=== PATIENT | male | born 1965 | race African-American/Black ===

== ENCOUNTER 2016-03-25 23:29 | Inpatient (IN) | payer MEDICAID, OTHER ==
[2016-03-25] MEDS ORDERED: ONDANSETRON 4 MG/2 ML VIAL ONE (23:43)
[2016-03-25] MEDS ORDERED: NS 2,000 ML IV ONE (23:52)
[2016-03-25] MEDS ORDERED: ONDANSETRON 4 MG/2 ML VIAL IVP ONE (23:52)
--- NOTE | 2016-03-25 23:58 | EDPHY ---
[id number] weakness, hypotension from detention HISTORY OF PRESENT ILLNESS: This patient very pleasant 50-year-old male significant past medical history for chronic kidney disease with baseline creatinine of 2-2.3 hypertension hyperlipidemia obstructive sleep apnea , obesity, angioedema, chronic pain with narcotic dependency, presents emergency room with generalized weakness from detention. It was noted by EMS the blood pressures in the low 80s sometimes in the 70s in route. They are unable to establish an IV. Upon arrival here in the emergency room is placed in the ER room 1 for resuscitation. His initial blood pressure was 80s by palpation. Is extremely hard IV stick. We able to get a right arm IV in place and a right neck IV. He tells me that for the past 2 days he has had generalized weakness, nausea 1- 2 episodes of vomiting he denies this being bloody, he denies bloody bowel movements however was reported to us that he did have possible blood in his stool. His main complaint is generalized weakness, nausea and feels really bad when he goes to stand up he gets extremely lightheaded. He denies chest pain or shortness of breath he denies headache, numbness or tingling. He does report that he has some left lower quadrant abdominal pain. Patient also tells me that he has thrush at this time. Past Medical History: Multiple chronic medical problems including chronic kidney disease creatinine to 2.3 baseline, hypertension, hyperlipidemia, BOBO, obesity, angioedema, chronic pain with narcotic dependency, questionable MS Past Surgical History: G-tube placement and removal, ? brain biopsy Social History: Incarcerated denies use of drugs alcohol tobacco products Family History: Noncontributory ROS REVIEW OF SYSTEMS: A comprehensive 10 point review of systems is otherwise negative aside from elements mentioned in the history of present illness. Exam Constitutional triage nursing summary reviewed, vital signs reviewed, awake/ alert. Eyes normal conjunctivae and sclera, EOMI, PERRLA. HENT normal inspection, atraumatic, extremely dry mucous membranes, no epistaxis, neck supple/ no meningismus, no raccoon eyes. Respiratory clear to auscultation bilaterally, normal breath sounds, no respiratory distress, no wheezing. Cardiovascular rate normal, regular rhythm, no murmur, no edema, distal pulses normal. Gastrointestinal soft, non-tender, no rebound, no guarding, normal bowel sounds, no distension, no pulsatile mass. Rectal exam: Green brown stool, no blood gross exam. Hemoccult card sent. Genitourinary no CVA tenderness. Musculoskeletal no midline vertebral tenderness, full range of motion, no calf swelling, no tenderness of extremities, no meningismus, good pulses, neurovascularly intact. Skin dry, pink, warm, & dry, no rash, skin atraumatic. Neurologic awake, alert and oriented x 3, AAOx3, moves all 4 extremities equally, motor intact, sensory intact, CN II-XII intact, normal cerebellar, normal vision, normal speech. Psychiatric normal mood/affect. Heme/Lymph/Immune no lymphadenopathy. Differential Diagnosis: Includes but is not limited to in a particular order, sepsis, bacteremia, electrolyte abnormality, severe dehydration, acute intra- abdominal process like diverticulitis, colitis, ruptured AAA, pneumonia, worsening renal failure, uremia, blood loss anemia, acute GI bleed, ACS Medical Decision Making: This patient will have 2 large-bore IVs established be resuscitated with IV fluid, we will check a rectal exam to make sure he is not having acute blood loss anemia from GI bleed leading to generalized weakness and hypotension, we will check EKG, troponin, electrolytes, kidney function, K, chest x-ray for pneumonia, blood cultures be pulled for bacteremia and sepsis, patient be closely monitored ER room 1. Re-evaluation: Critical Care: Total Critical Care Time Spent Managing this Patient: 60 minutes Minutes. This time was spent Exclusively with this patient. This Care was exclusive of procedures. The Organ System/life at risk was severe hypotension, cardiac, renal, neurological This Patient was in Critical Condition because severe hypotension EKG interpretation by me on record in [employer] Formula E system. Impression time of EKG is 12:04 a.m. this is sinus rhythm rate of 58, there are T-wave abnormalities noted into 3 AVF flattening of lead 3, there are T-wave abnormality symmetrical in V4 V5 V6 when I compare his current EKG to the EKG on 01/07/2016 the T-wave abnormalities seen in V4 V5 and V6 are new however lead 2 3 and AVF looks similar to previous EKGs. ED x-ray chest one view lung davis are clear, no pulmonary infiltrate. Cardiac silhouette normal in size good inspiratory effort. 1246: re-evaluation at this time this patient's blood pressure is currently 93 over 53 at this time he has had 1 L normal saline the 2nd L is going in. Blood work pending at this time. Echocardiogram at bedside doing a formal echo for hypertension generalized weakness CT scan of the abdomen pelvis without IV contrast. The results of the study are shows no acute inflammatory process is noted there are 2 pulmonary nodules that will need further evaluation and workup at a later point, there is minimal rectal thickening however no stranding or significant inflammation seen on the CT. No free fluid. No acute inflammatory intra-abdominal process on this CT scan without IV contrast The study was read by Dr. Gr I viewed the images myself on the PACS system. Echocardiogram: Performed at bedside by electrical power station technician reported to me severe LVH otherwise unremarkable 1310: This patient has a blood sugar reported to me of in the 9 100s. His bicarb is noted to be severely low at 14. This makes him in DKA. We started an insulin drip and admitted to the intensive care unit. 0117: I spoke with Dr. Zimmer as the hospitalist service agrees to admit this patient patient be admitted to the ICU in severe DKA, acidemia, prerenal renal failure. I have ordered a Sidhu catheter he is receiving his 3rd L of fluid. Is noted he is hyponatremic, hyperkalemic, acidotic and anion gap indicating DKA. This is most likely severe dehydration and DKA. Patient's blood pressure did improve it is now currently 101/76. I will also consult Nephrology this time due to elevated creatinine and BUN however most likely this is pre renal and will hopefully improve with IV fluids and rehydration. 0121: I spoke with Nephrology Dr. Marsh with Nephrology. They agree with treatment plan at this time with IV fluids, and treatment for DKA placement in ICU they do expect the potassium creatinine BUN to improved with IV hydration and IV insulin. Source: Patient, EMS - Personal History Current Tetanus/Diphtheria Vaccine: Unsure Current Tetanus Diphtheria and Acellular Pertussis (TDAP): Unsure - Medical/Surgical History Hx Asthma: No Hx Chronic Respiratory Disease: No Hx Diabetes: Yes Hx Cardiac Disease: Yes Hx Renal Disease: Yes Hx Cirrhosis: No Hx Alcoholism: No Hx HIV/AIDS: No Hx Splenectomy or Spleen Trauma: No Other PMH: uncontrolled HTN, renal insufficiency, tumor wrapped around brain stem ANXIETY. DM II, hld, BOBO. chronic pain - Social History Smoking Status: Light smoker Constitutional: Initial Vital Signs Heart Rate 63 03/25/16 23:29 Respiratory Rate 12 03/25/16 23:29 Blood Pressure 78/52 L 03/25/16 23:29 O2 Sat (%) 99 03/25/16 23:29 O2 Delivery Mode Nasal Cannula O2 (L/minute) 2 Allergies/Adverse Reactions: acetaminophen [From Tylenol] Allergy (Severe, Verified 04/05/15 17:27) Swelling/neck,face,throat Tvczbvs-Dnb-Yxh Reductase Inhibitor Allergy (Unknown, Verified 01/30/15 16:58) metoclopramide HCl [From Reglan] Allergy (Verified 01/30/15 16:58) Home Medications: Medication Instructions Recorded Allopurinol [Allopurinol 100 MG 200 mg PO DAILY 03/26/16 (*)] Amlodipine Besylate 10 mg PO HS 03/26/16 Ezetimibe [Zetia 10 MG (*)] 10 mg PO HS 03/26/16 Famotidine [Pepcid 20 MG (*)] 20 mg PO BID 03/26/16 Lisinopril/Hydrochlorothiazide 1 each PO DAILY 03/26/16 [Zestoretic 20-25 mg Tablet] Metoprolol Succinate [Toprol Xl 200 mg PO DAILY 03/26/16 200 mg] Mometasone/Formoterol [Dulera 100 1 puffs IH BID 03/26/16 Mcg/5 Mcg Inhaler] Sertraline HCl [Zoloft 100mg (*)] 100 mg PO DAILY 03/26/16 Medical Decision Making - Data Points Laboratory Results: Laboratory Results 03/25/16 23:00 03/25/16 23:00 Medications Given: Discontinued Medications Fentanyl (Sublimaze) 50 mcg IVP EDNOW ONE Stop: 03/26/16 01:26 Last Admin: 03/26/16 01:28 Dose: 50 mcg Sodium Chloride (Ns) 2,000 mls @ 0 mls/hr IV ONCE ONE PRN Reason: As Directed Stop: 03/25/16 23:53 Last Admin: 03/25/16 23:54 Dose: 2,000 mls Sodium Chloride (Ns) 1,000 mls @ 0 mls/hr IV ONCE ONE PRN Reason: Wide Open Stop: 03/26/16 00:56 Last Admin: 03/26/16 00:55 Dose: 1,000 mls Insulin Human Regular 100 unit / Miscellaneous Medication 1 ea/ Sodium Chloride 101 mls @ 6 mls/hr IV EDNOW ONE Stop: 03/26/16 17:57 Last Admin: 03/26/16 01:26 Dose: 101 mls Sodium Chloride (Ns) 1,000 mls @ 0 mls/hr IV ONCE ONE PRN Reason: Wide Open Stop: 03/26/16 02:02 Last Admin: 03/26/16 02:08 Dose: 1,000 mls Insulin Human Regular 100 unit (/ Sodium Chloride) 101 mls @ 0 mls/hr IV AD EUFEMIA ; Per Protocol PRN Reason: Protocol Stop: 09/22/16 02:57 Last Admin: 03/26/16 06:36 Dose: 101 mls Sodium Chloride (1/2 Ns) 1,000 mls @ 125 mls/hr IV CONT EUFEMIA Stop: 09/22/16 03:29 Last Admin: 03/26/16 06:39 Dose: 1,000 mls Sodium Chloride (Ns) 1,000 mls @ 0 mls/hr IV ONCE ONE PRN Reason: Wide Open Stop: 03/26/16 07:24 Last Admin: 03/26/16 08:10 Dose: 1,000 mls Ondansetron HCl (Zofran) 4 mg IVP EDNOW ONE Stop: 03/25/16 23:53 Last Admin: 03/25/16 23:54 Dose: 4 mg Potassium Chloride (Klor-Con) 10 - 40 meq PO ONCE ONE PRN Reason: Protocol Stop: 03/26/16 06:20 Last Admin: 03/26/16 06:40 Dose: 30 meq Potassium Chloride (Klor-Con) 10 - 40 meq PO ONCE ONE PRN Reason: Protocol Stop: 03/26/16 09:23 Last Admin: 03/26/16 10:02 Dose: 20 meq Potassium Chloride (Klor-Con) 10 - 40 meq PO ONCE ONE PRN Reason: Protocol Stop: 03/26/16 14:04 Last Admin: 03/26/16 15:08 Dose: 30 meq Departure - Departure Disposition: [facility] Acute Clinical Impression: Renal failure DKA (diabetic ketoacidoses) Qualifiers: Diabetes mellitus type: type 1 Diabetes mellitus complication detail: without coma Qualifier Code: (E10.10) Type 1 diabetes mellitus with ketoacidosis without coma Condition: Critical
--- NOTE | 2016-03-26 00:06 | CPEKG ---
Heart Rate: 58 RR Interval: 1034 P-R Interval: 200 QRSD Interval: 82 QT Interval: 476 QTC Interval: 468 P [place]: 17 QRS [place]: 6 T Wave [place]: 223 EKG Severity - ABNORMAL ECG - EKG Impression: SINUS RHYTHM EKG Impression: ABNORMAL T, CONSIDER ISCHEMIA, LATERAL LEADS Electronically Signed By: Arthur Cain 27-Mar-2016 04:14:35
[2016-03-26 00:21] LABS: % IMMATURE GRANULYOCYTES 0.6 % (0.0-1.1); ABSOLUTE IMMATURE GRANULOCYTES 0.04 10^3/uL (0.00-0.10); ADD DIFF? NO; ADD MORPH? NO; ADD SCAN? NO; ATYPICAL LYMPHOCYTE FLAG 10 (0-99); FRAGMENT RBC FLAG 20 (0-99); HEMATOCRIT 41.2 % (40.0-51.0); HEMOGLOBIN 14.4 g/dL (13.7-17.5); LEFT SHIFT FLG 0 (0-99); LIPEMIA HEMOLYSIS FLAG 90 (0-99); MEAN CELL HEMOGLOBIN 25.6 pg (27.9-34.1); MEAN CELL VOLUME 73.3 fL (81.5-99.8); PLATELET CLUMPS FLAG 10 (0-99); PLATELET COUNT 231 10^3/uL (150-400); RED BLOOD CELL COUNT 5.62 10^6/uL (4.40-6.38); RED CELL DISTRIBUTION WIDTH 14.6 % (11.5-15.2)
[2016-03-26 00:28] LABS: APTT 25.4 SEC (23.0-38.0); INR 1.06 (0.83-1.16); PROTIME(PATIENT) 13.7 SEC (12.0-15.0)
[2016-03-26 00:40] LABS: ALANINE AMINOTRANSFERASE 29 IU/L (21-72); ALBUMIN 3.7 g/dL (3.5-5.0); ALKALINE PHOSPHATASE 147 IU/L (38-126); ANION GAP 24 mEq/L (8-16); ASPARTATE AMINOTRANSFERASE 18 IU/L (17-59); BILIRUBIN,TOTAL 0.8 mg/dL (0.1-1.4); BILIRUBIN-CONJUGATED 0.5 mg/dL (0.0-0.5); BILIRUBIN-UNCONJUGATED 0.3 mg/dL (0.0-1.1); CALCIUM 8.9 mg/dL (8.5-10.4); CARBON DIOXIDE 14 mEq/l (22-31); CHLORIDE 83 mEq/L (97-110); CREATININE 5.9 mg/dL (0.7-1.3); GLOMERULAR FILTRATION RATE 10; MAGNESIUM 2.5 mg/dL (1.6-2.3); POTASSIUM 6.1 mEq/L (3.5-5.2); SODIUM 121 mEq/L (134-144); TOTAL PROTEIN 6.8 g/dL (6.3-8.2)
[2016-03-26 00:51] LABS: CREATINE KINASE-MB FRACTION 2.54 ng/mL (0-3.19); TROPONIN I 0.135 ng/mL (0-0.034)
[2016-03-26] MEDS ORDERED: NS 1,000 ML IV ONE ×3 (00:55→07:23)
[2016-03-26 01:05] LABS: GLUCOSE 942 mg/dL (70-100)
[2016-03-26] MEDS ORDERED: INSULIN REGULAR HUMAN 100 UNIT, COSIGN. REQUIRED 1 EA in NS 100 ML IV ONE (01:08)
[2016-03-26] MEDS ORDERED: LIDOCAINE 2% JELLY 20 ML (UROJECT) ONE (01:21)
[2016-03-26] MEDS ORDERED: fentaNYL 100 MCG/2 ML INJ IVP ONE (01:25)
[2016-03-26] MEDS ORDERED: fentaNYL 100 MCG/2 ML INJ ONE (01:26)
[2016-03-26 02:27] LABS: B-HYDROXYBUTYRATE 7.1 mmol/L (0.02-0.27)
[2016-03-26 02:56] LABS: ALANINE AMINOTRANSFERASE 34 IU/L (21-72); ALBUMIN 3.3 g/dL (3.5-5.0); ALKALINE PHOSPHATASE 126 IU/L (38-126); ANION GAP 23 mEq/L (8-16); ASPARTATE AMINOTRANSFERASE 16 IU/L (17-59); BILIRUBIN,TOTAL 0.7 mg/dL (0.1-1.4); CALCIUM 8.3 mg/dL (8.5-10.4); CARBON DIOXIDE 14 mEq/l (22-31); CHLORIDE 90 mEq/L (97-110); CREATININE 5.2 mg/dL (0.7-1.3); GLOMERULAR FILTRATION RATE 12; POTASSIUM 5.4 mEq/L (3.5-5.2); SODIUM 127 mEq/L (134-144); TOTAL PROTEIN 6.1 g/dL (6.3-8.2)
[2016-03-26] MEDS ORDERED: INSULIN REGULAR HUMAN 100 UNIT/ML IVP PRN (02:58)
[2016-03-26] MEDS ORDERED: INSULIN REGULAR HUMAN 100 UNIT in NS 100 ML IV SCH ×2 (02:58→03:00)
[2016-03-26] MEDS ORDERED: D50W 25 GM/50 ML SYR IVP PRN ×2 (02:58→09:40)
[2016-03-26 03:06] LABS: GLUCOSE 787 mg/dL (70-100)
[2016-03-26] MEDS ORDERED: PROMETHAZINE HCL 25 MG/ML VIAL IVP PRN (03:10)
[2016-03-26] MEDS ORDERED: 1/2 NS 1,000 ML IV SCH (03:30)
[2016-03-26 03:43] LABS: COLOR YELLOW; LEUKOCYTE ESTERASE,URINE NEGATIVE (NEGATIVE); NITRITE,URINE NEGATIVE (NEGATIVE)
[2016-03-26 03:46] LABS: BACTERIA TRACE /hpf (NONE SEEN); MUCUS 1+ /lpf (NONE-1+)
--- NOTE | 2016-03-26 04:01 | GHP ---
[f rep st] HISTORY AND PHYSICAL DATE OF ADMISSION: 03/26/2016 CHIEF COMPLAINT: Abdominal pain and oral thrush. HISTORY OF PRESENT ILLNESS: The patient is a 50-year-old male, currently incarcerated, who has been feeling sick for the last 2 weeks. It initially started with development of oral thrush. He also no ticed a left upper quadrant abdominal pain. He has been sleeping all day. He has had increased thir st and polyuria. He has had weight loss and has decreased p.o. intake, not eating anything for the l ast 4 days. He has noticed blurry vision and increased urinary frequency. He feels like his throat is swollen secondary to the thrush. He denies any chest pain. Feels maybe some shortness of breath due to the throat issues. He has never previously been told he is diabetic and was hospitalized here 6 months ago without any evidence of diabetes and a hemoglobin A1c of 5.7 at that time. PAST MEDICAL HISTORY: 1. Chronic kidney disease, baseline creatinine 2.3. 2. Kslvbatvz-py-gccytxo hypertension. 3. Hyperlipidemia. 4. Obesity with obstructive sleep apnea. 5. Chronic pain with continuous narcotic dependency. 6. Recurrent angioedema of unclear etiology. 7. Gout. 8. 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 Brain biopsy was attempted but was nondiagnostic. Subsequently, he developed complete paralysis and multiple sclerosis was the res ulting diagnosis. He spent years in a wheelchair but has had improvement and his now back to being a mbulatory with some minor residual neuro deficits. MEDICATIONS: He does take lisinopril and hydrochlorothiazide. He takes prednisone as needed for gou t with his last prednisone burst being in January. ALLERGIES: Tylenol, which causes angioedema, statins, and Reglan. SOCIAL HISTORY: He smoked prior to being in skilled nursing. He has been in skilled nursing since May. Typically lives in a mobile home. No alcohol. No drug use. REVIEW OF SYSTEMS: Complete review of systems obtained. Review of systems is negative regarding con stitutional, HEENT, GI, pulmonary, cardiovascular, , hematologic, musculoskeletal, endocrine, psych , except for positive pertinents as noted in HPI. FAMILY HISTORY: Reviewed and noncontributory to presenting complaint. PHYSICAL EXAMINATION: GENERAL: Well-developed, well-nourished male in no acute distress. VITAL SIG NS: Temperature is afebrile, pulse is 63, blood pressure 83/58, saturating 99% on room air. EYES: Normal conjunctivae. Pupils react light. ENT: Normal ears and nose. Hearing intact. Normal lips and teeth. Oropharynx is very dry. Some possible thrush irritation. NECK: Trachea midline. No th yromegaly. CHEST: Normal respiratory effort. LUNGS: Clear to auscultation bilaterally. CARDIOVAS CULAR: S1, S2. Regular rate and rhythm. No murmur. No lower extremity edema. ABDOMEN: Soft, non tender. No hepatosplenomegaly. SKIN: Warm, dry, intact, without rash. MUSCULOSKELETAL: No cyanos is or clubbing. Strength is 5/5 upper and lower extremities. NEURO: Cranial nerves intact. Normal sensation to light touch. PSYCH: Alert and oriented x3. Normal mood and affect. Normal judgment and insight. Normal memory. LABS: White count 6.46, hematocrit 41.2, platelets 231. Sodium 121, potassium 6.1, chloride 83, bic arb 14, anion gap 24, BUN 65, creatinine 5.9, glucose 942. Phos is 9.2. Troponin 0.135. EKG viewed by me, and my personal interpretation is normal sinus rhythm, lateral T-wave inversion. C hest x-ray is negative. Abdominal CT scan is negative except for some pulmonary nodules discovered, which need follow up. ASSESSMENT/PLAN: 1. Diabetic ketoacidosis. This appears to be new-onset diabetes. Will treat per DKA protocol with insulin drip and IV fluids with serial chem-7's. 2. Hypotension. I suspect this is hypovolemia. Will check his NICOM, check a lactate. Will hold h is blood pressure medications. 3. Yjvzg-nx-qeqdisu kidney disease. Nephrology has been consulted. We will check a renal ultrasoun d. We will hold his lisinopril and hydrochlorothiazide, which are likely contributing. 4. Troponin elevation. I suspect this is strain due to his medical instability. He does have some significant lateral T-wave inversions. Will follow serial troponins and EKGs. 5. Thrush. Will continue nystatin, which was initiated in skilled nursing. 6. Gout. He has not had a prednisone burst since last January, but this needs to be used with caut ion now that he is diabetic. 7. Hyponatremia. After his initial fluid resuscitation in the emergency room, we have already corre cted his initial sodium fairly briskly. Will, therefore, use half-normal saline as his resuscitative fluid from this point forward and try to avoid further rapid correction. This may be difficult due to balance in lieu of his need for ongoing fluid resuscitation for DKA and hypotension due to hypovol emia. 8. 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 This all occurred 10 years ago. Presumably, it would not be malignant tumor since he is improved. Brain imaging can be repeated if there are any further concerns. 9. Pulmonary nodules incidentally noted on CAT scan. These need outpatient followup. CODE STATUS: Full. ADMISSION STATUS: 1. Will admit to inpatient as he is unstable and anticipate greater than 2 midnights for stabilizati on. 2. Deep vein thrombosis prophylaxis. Will place him on subcu heparin. /[id number]/MODL
[2016-03-26] MEDS ORDERED: ALTEPLASE 2 MG VIAL IVP PRN (05:22)
[2016-03-26] MEDS ORDERED: PROTOCOL MAGNESIUM 1 DOSE IV PRN (06:11)
[2016-03-26] MEDS ORDERED: PROTOCOL POTASSIUM 1 DOSE MISC PRN ×2 (06:11→06:18)
[2016-03-26 06:17] LABS: % IMMATURE GRANULYOCYTES 0.7 % (0.0-1.1); ABSOLUTE IMMATURE GRANULOCYTES 0.03 10^3/uL (0.00-0.10); ADD DIFF? NO; ADD MORPH? NO; ADD SCAN? NO; ATYPICAL LYMPHOCYTE FLAG 10 (0-99); FRAGMENT RBC FLAG 0 (0-99); HEMATOCRIT 33.6 % (40.0-51.0); HEMOGLOBIN 11.9 g/dL (13.7-17.5); LEFT SHIFT FLG 0 (0-99); LIPEMIA HEMOLYSIS FLAG 90 (0-99); MEAN CELL HEMOGLOBIN 25.6 pg (27.9-34.1); MEAN CELL HEMOGLOBIN CONCENTR. 35.4 g/dL (32.4-36.7); MEAN CELL VOLUME 72.3 fL (81.5-99.8); MEAN PLATELET VOLUME 11.5 fL (8.7-11.7); PLATELET CLUMPS FLAG 10 (0-99); PLATELET COUNT 153 10^3/uL (150-400); RED BLOOD CELL COUNT 4.65 10^6/uL (4.40-6.38); RED CELL DISTRIBUTION WIDTH 14.3 % (11.5-15.2)
[2016-03-26] MEDS ORDERED: POTASSIUM CL 10 MEQ TAB PO ONE ×3 (06:19→14:03)
[2016-03-26 06:30] LABS: ANION GAP 16 mEq/L (8-16); CALCIUM 7.8 mg/dL (8.5-10.4); CARBON DIOXIDE 19 mEq/l (22-31); CHLORIDE 99 mEq/L (97-110); CHOLESTEROL 314 mg/dL (140-220); CHOLESTEROL/HDL RATIO 12.08 RATIO (1.00-4.97); GLOMERULAR FILTRATION RATE 12; GLUCOSE 391 mg/dL (70-100); HIGH DENSITY LIPOPROTEIN 26 mg/dL (40-65); MAGNESIUM 2.4 mg/dL (1.6-2.3); NON-HIGH DENSITY LIPOPROTEIN 288 mg/dL (90-129); POTASSIUM 3.5 mEq/L (3.5-5.2); SODIUM 134 mEq/L (134-144); URIC ACID 9.1 mg/dL (3.5-8.5)
[2016-03-26] MEDS: HEPARIN 5,000 UNIT/0.5 ML SYR SC SCH ×3 (06:38→22:20)
[2016-03-26] MEDS: NYSTATIN SUSP 500000 UNIT/5 ML UDCUP PO SCH ×4 (06:38→20:46)
[2016-03-26 06:42] LABS: TROPONIN I 0.104 ng/mL (0-0.034)
[2016-03-26] MEDS: ONDANSETRON 4 MG/2 ML VIAL IVP PRN (06:49)
[2016-03-26 07:13] LABS: TRIGLYCERIDE 772 mg/dL (40-150)
--- NOTE | 2016-03-26 07:26 | HOSPPROG ---
Hospitalist Progress Note Assessment/Plan: Corrected admission sodium for high glucose is 141. Therefore was not really hyponatremic on admission. Okay to continue aggressive fluid resuscitation. NICOM continued to show fluid responsiveness. May need to move toward pressors as persistent hypotension/elevated lactate with ARF leading to ongoing renal injury. Place PICC. Objective: Vital Signs Temp Pulse Resp BP Pulse Ox 35.6 C L 63 20 68/42 L 94 03/26/16 02:30 03/26/16 06:00 03/26/16 06:00 03/26/16 06:00 03/26/16 06:00 Laboratory Results 03/26/16 06:05 03/26/16 06:05 03/25/16 03/26/16 03/27/16 05:59 05:59 05:59 Intake Total 6105 Output Total 225 Balance 5880 PT 13.7 SEC (12.0-15.0) 03/25/16 23:00 INR 1.06 (0.83-1.16) 03/25/16 23:00 ICD10 Worksheet Patient Problems: Problems Problem Status Diagnosed DKA (diabetic ketoacidoses) Acute Renal failure Acute Pneumonia Acute
--- NOTE | 2016-03-26 08:06 | ECHO ---
[id number] + + [address] : : [place] [address] : : [phone] + + Adult Echocardiographic Report + -------+ :Name: MAAME BECKER FStudy Date: 03/26/2016 12:57 AM BP: 85/54 mmH g : : Hospital Admission Number: [id number] Locat ion: ER: :: 1965 Gender: Male Height: 71 in : :Age: 50 yrs Race: [facility] Weight: 280 l b : :Reason For Study: hypotension : : BSA: 2.4 mete rs2 : :History: hypotension : + -------+ MMode/2D Measurements & Calculations IVSd: 1.5 cm LVIDd: 3.2 cm FS: 41.2 % Ao root diam: 3.5 cm LVPWd: 1.6 cm LVIDs: 1.9 cm EDV(Teich): 40.3 ml LA dimension: 2.7 cm ESV(Teich): 10.7 ml EF(Teich): 73.4 % Normal Measurement Values: + + :LVIDd (3.5-5.7cm) IVSd (0.6-1.1cm) LVPWd (0.6-1.1cm) Aortic Root (2.0-3.7cm)Left Atrium (1.5-4.0cm): :LV Vol(d) (76-115ml) LV Vol(s) (29-48ml) Ejec Fraction (50-65%)PV Ziggy (0.6- 1.2m/s) TV Ziggy (0.4-1.0m/s) : :MV E Ziggy (0.8-1.0m/s)MV A Ziggy (0.3-1.0m/s)LVOT Ziggy (0.7-1.2m/s) Asc Ao Ziggy ( 0.9-1.8m/s) : + + Doppler Measurements & Calculations MV E max ziggy: Ao V2 max: LV V1 max: PA V2 max: 47.9 cm/sec 186.0 cm/sec 174.0 cm/sec 96.0 cm/sec MV A max ziggy: Ao max PG: LV V1 max PG: PA max P.4 cm/sec 13.8 mmHg 12.1 mmHg 3.7 mmHg MV E/A: 0.97 MV dec time: 0.35 sec Left Ventricle The left ventricle is normal in size and function. There is moderate concentric left ventricular hypertrophy. An intracavitary gradient is present. Ejection Fraction = 65-70%%. Right Ventricle The right ventricle is normal in size and function. Atria The left atrial size is normal. Right atrial size is normal. The interatrial septum is intact with no evidence for an atrial septal defect. Mitral Valve The mitral valve is normal in structure and function. There is systolic anterior motion of the chordal apparatus. There is no mitral valve stenosis. There is trace mitral regurgitation. Tricuspid Valve The tricuspid valve is normal in structure and function. No tricuspid regurgitation. Aortic Valve The aortic valve is not well visualized. There is no aortic stenosis. There is no aortic insufficiency. Pulmonic Valve The pulmonic valve is not well visualized. Great Vessels The aortic root is normal size. Pericardium/Pleural There is no pericardial effusion. Conclusion A two-dimensional transthoracic echocardiogram with M-mode and Doppler was performed. The study was technically difficult. Ejection Fraction = 65-70%%. There is moderate concentric left ventricular hypertrophy. An intracavitary gradient is present. The mitral valve is normal in structure and function. There is systolic anterior motion of the chordal apparatus. The pulmonic valve is not well visualized. The tricuspid valve is normal in structure and function. There is no pericardial effusion. Final Reading Physician: Michele Etienne electronically signed on 03/26/2016 08:05 AM Ordering Physician: Arthur Cain Performed By: Peg Elmore
[2016-03-26] MEDS: NOREPINEPHRINE BITARTRATE 4 MG in D5W 500 ML IV SCH ×2 (08:10→22:20)
[2016-03-26] MEDS: ASPIRIN EC 325 MG TAB PO SCH (08:11)
--- NOTE | 2016-03-26 08:27 | US ---
Abdomen Retroperitoneal Renal Ultrasound: 0617 hours Indications: Acute renal failure. Findings: No hydronephrosis, shadowing renal calculi, focal cortical abnormalities or perinephric fl uid. Images are somewhat limited secondary to patient's large body habitus. Right kidney: 10.3 x 4.4 x 4.2 cm. Cortical thickness 1.2 cm. Left kidney: 13.2 x 5.7 x 6.1 cm. Cortical thickness 1.2 cm. A Sidhu catheter is present within decompressed bladder Impression: No hydronephrosis. Normal appearing kidneys. Sidhu catheter present within decompressed bladder.
[2016-03-26] MEDS: oxyCODONE IR 5 MG TAB PO PRN ×4 (08:31→22:19)
--- NOTE | 2016-03-26 09:46 | HOSPPROG ---
Hospitalist Progress Note Assessment/Plan: DKA - He has required 170 units of insulin since arrival. Gap closed this am, bg down to 140's. Will transition to SC Insulin with 60 units Lantus and dose adjusted Lispro, up-titrate as needed. Will likely need insulin and diabetes education. A1c pending. Hold Metformin (not likely candidate to continue this due to CKD). SHEILA / CKD - suspect underlying diabetic nephropathy vs hypertensive CKD, renal u /s normal. Baseline Cr 2.3. Query pre-renal vs ATN with hypotension. Cr improving with volume resuscitation, cont IVF's. Nephrology to consult. Hyperkalemia - resolved with intracellular shifting after initiation of insulin therapy. Hypotension - pt has h/o hypertension, but hypotensive here, volume responsive, also requiring pressors. Cont to hold anti-hypertensives, wean Levophed as able. Elevated troponin - CP free. Trop trended down to 0.105, but back on the rise, to 0.18. Query strain in setting of acute illness. T wave inversions on EKG which is a change from prior. Will repeat EKG now. No WMA on echo. TG's >700 , HDL 26. Will cont daily ASA, resume Zetia, statin intolerant. BB held due to hypotension. Likely needs risk stratification prior to dc, will discuss with cards. Pulmonary nodule - needs outpt f/u Full code DVT PPLX - EUFEMIA Dispo - cont inpt Subjective: Pt feels better this am. He denies CP or SOB. No N/V or abdominal pain. No fevers. Objective: Vital Signs Temp Pulse Resp BP Pulse Ox 36.3 C 61 22 H 98/49 L 96 03/26/16 07:00 03/26/16 09:00 03/26/16 09:00 03/26/16 09:00 03/26/16 09:00 Laboratory Results 03/26/16 06:05 03/26/16 06:05 03/25/16 03/26/16 03/27/16 05:59 05:59 05:59 Intake Total 6105 Output Total 225 Balance 5880 PT 13.7 SEC (12.0-15.0) 03/25/16 23:00 INR 1.06 (0.83-1.16) 03/25/16 23:00 - Physical Exam Constitutional: no apparent distress Eyes: PERRL Ears, Nose, Mouth, Throat: dry mucous membranes Cardiovascular: regular rate and rhythym Respiratory: no respiratory distress, clear to auscultation Gastrointestinal: normoactive bowel sounds, soft, non-tender abdomen Skin: warm Neurologic: AAOx3 Psychiatric: interacting appropriately ICD10 Worksheet Patient Problems: Problems Problem Status Diagnosed DKA (diabetic ketoacidoses) Acute Renal failure Acute Pneumonia Acute
[2016-03-26] MEDS: INSULIN GLARGINE 100 UNITS/ML SYRINGE SC SCH (10:03)
--- NOTE | 2016-03-26 10:24 | SOAPPROG ---
SOAP Progress Note Assessment/Plan: Assessment: SHEILA on CKD, baseline Cr reportedly 2.3 DKA Hyperkalemia- likely cellular shifting from DKA, improved Hypotension, requiring pressors BOBO History of HTN, gout Please see dictation # [id number] I discussed my recs with hospitalist (and ER team overnight) Columba Patel MD [facility] [phone] pager [phone] office 03/26/16 12:06 Objective: Vital Signs Temp Pulse Resp BP Pulse Ox 36.3 C 61 14 95/54 L 97 03/26/16 07:00 03/26/16 10:00 03/26/16 10:00 03/26/16 10:00 03/26/16 10:00 Laboratory Results 03/26/16 06:05 03/25/16 03/26/16 03/27/16 05:59 05:59 05:59 Intake Total 6105 Output Total 225 Balance 5880 PT 13.7 SEC (12.0-15.0) 03/25/16 23:00 INR 1.06 (0.83-1.16) 03/25/16 23:00 ICD10 Worksheet Patient Problems: Problems Problem Status Diagnosed DKA (diabetic ketoacidoses) Acute Renal failure Acute Pneumonia Acute
[2016-03-26 10:39] LABS: ANION GAP 12 mEq/L (8-16); CALCIUM 7.7 mg/dL (8.5-10.4); CARBON DIOXIDE 21 mEq/l (22-31); CHLORIDE 103 mEq/L (97-110); CREATININE 4.4 mg/dL (0.7-1.3); GLOMERULAR FILTRATION RATE 14; GLUCOSE 98 mg/dL (70-100); POTASSIUM 3.5 mEq/L (3.5-5.2); SODIUM 136 mEq/L (134-144)
--- NOTE | 2016-03-26 10:39 | DX ---
Portable chest x-ray 0021 hours. History: Chest pain. Findings: Comparison to April 06, 2015. Heart size and pulmonary vasculature appear to be normal. There is no consolidation, effusion, or pne umothorax. There is mild levoscoliosis upper thoracic spine and dextroscoliosis mid thoracic spine. Impression: 1. No active cardio pulmonary disease seen. 2. Scoliosis.
[2016-03-26] MEDS ORDERED: D5W 1,000 ML IV SCH (11:30)
[2016-03-26] MEDS: INSULIN LISPRO 100 UNIT/ML SC SCH ×3 (13:04→20:51)
--- NOTE | 2016-03-26 13:17 | GCON ---
[f rep st] CONSULTATION INPATIENT NEPHROLOGY CONSULTATION DATE OF CONSULTATION: 03/26/2016 REFERRING PHYSICIAN: Arthur aCin MD REASON FOR CONSULTATION: Acute kidney injury. HPI: Mr. Rios is a pleasant 50-year-old man who is currently incarcerated, who presented to the emergency room complaining of worsening vision, fatigue, increase thirst, and decreased oral intake. His symptoms began approximately 2 weeks ago when he initially developed oral thrush. He reports t hat he was checked at the [facility] at the nursing home and was noted to have lower blood pressure, and was r eferred to Ophthalmology. When he symptoms progressed, he came to the emergency room. On arrival, baljit young was noted to be in DKA with a glucose of 942, a potassium of 6.1, a bicarbonate of 14, and an anion gap of 24. He has been aggressively resuscitated with IV fluids and an insulin drip. Dr. Ant espinosa asked me to consult on the patient given his renal dysfunction. His creatinine on admission was 5 .9. It has improved to 4.4 this morning. He has been nonoliguric and has had a Sidhu catheter place d in the emergency room. He has required some norepinephrine overnight for blood pressure support, b ut this improving. His latest blood sugar if 98. His potassium initially when he came in was 6.1, b ut with treatment of hyperglycemia his potassium has improved to 3.5. The patient tells me that he h as chronic kidney disease that has been attributed to hypertension. This was first noticed when he w as in his mid 30s. He denies any known history of diabetes, although there are some reports that he was on metformin as an outpatient. 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 He does have family history of kidney disease as his father developed endstage renal disease from what sounds like hypertension. Juan luna family members have also had diabetes. The patient also has a history of obstructive sleep a pnea and uses CPAP. He denies any NSAID use. He denies any difficulty urinating, or dysuria or wolf turia. REVIEW OF SYSTEMS: GENERAL: He has had generalized malaise, poor oral intake. No fevers. HEENT: His mouth has felt very dry. No sore throat. He did have thrush recently that he thinks is better. PULMONARY: He has had shortness of breath, even at rest. No cough. CARDIAC: No chest pain. No l ower extremity edema. GI: He has had some nausea and vomiting. Some loose stools. No blood in his stools. : No hematuria. No dysuria. No difficulty voiding. SKIN: No rash. NEUROLOGIC: He h as felt generalized weak. He has had some vision blurriness. HEME: No bleeding. ENDOCRINE: He gutierrez s had increased thirst and increased urine output. PAST MEDICAL HISTORY: 1. Diabetes, unclear of onset of diagnosis as the patient was unaware of this prior. 2. Hypertension, diagnosed in his early 30s. 3. Obstructive sleep apnea, on CPAP. 4. Chronic pain, on chronic narcotics. 5. Recurrent angioedema of unclear etiology. 6. Gout. 7. 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 Biopsy was nondiagnost ic. 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 8. Hyperlipidemia. 9. Chronic kidney disease, baseline serum creatinine approximately 2.3 per the chart. This has been attributed to hypertension in the past. SOCIAL HISTORY: He has been incarcerated since May. Former smoker. He denies any current alcohol or drugs. FAMILY HISTORY: His father developed endstage renal disease from what sounds like hypertension. He also has multiple family members, including his mother, with diabetes. MEDICATIONS ON ADMISSION: Included lisinopril, hydrochlorothiazide, and p.r.n. prednisone for gout w ith no recent use. CURRENT MEDICATIONS: Include aspirin 325 mg p.o. daily, insulin drip, morphine p.r.n., norepinephrin e drip, nystatin oral 500,000 units p.o. 4 times daily, Zofran p.r.n., oxycodone p.r.n. He is curren tly on IV fluids with D5W. PHYSICAL EXAM: VITAL SIGNS: His temperature is 36.3, his blood pressure is 101/58, his heart rate i s 59, he is satting 97% on 3 L. GENERAL: He is alert, no acute distress, on norepinephrine and IV f luids, not tachypneic on oxygen by nasal cannula. HEENT: His mucous membranes are dry. There is no scleral icterus. NECK: Supple. LUNGS: Clear to auscultation bilaterally. CARDIOVASCULAR: Regula r rated and rhythm. No murmur or rub. ABDOMEN: Soft, nontender. Normal bowel sounds. EXTREMITIES : No edema. Warm, well perfused. SKIN: Dry. No obvious rash. NEUROLOGIC: Alert and oriented x3 . LABS: Sodium 136, potassium 3.5, chloride 103, bicarbonate 21, BUN 61, creatinine 4.4, glucose 98. Calcium 7.7. Creatinine kinase 80. Troponin 0.104. Triglycerides 772, total cholesterol 314, HDL 2 6. TSH 1.95. His urine toxicology screen was negative. CBC showed a white blood cell count of 4.5, hemoglobin 11.9, hematocrit 33.6, platelets 153. His INR was 1.06. His lactate on arrival was 3.0, it has improved to 1.9. His urinalysis showed 2+ protein, 1+ blood, trace ketones, trace bacteria, 3 + glucose. Blood cultures are pending. IMAGING: An abdominal ultrasound showed the right kidney measuring 10.3 cm, the left kidney measurin g 13.2 cm. No hydronephrosis. He does have a Sidhu catheter in. His chest x-ray showed no active c ardiopulmonary disease. ASSESSMENT AND PLAN: Mr. Rios is a 50-year-old man with a history of hypertension, diabetes, an d chronic kidney disease and sleep apnea, who now presents with diabetic ketoacidosis, acute kidney i njury. 1. Acute on chronic kidney disease: The patient has known chronic kidney disease with a baseline cr eatinine of reportedly 2.3. He reports that this has been previously attributed to hypertension and was first noted in his early 30s. He now has acute kidney injury on top of his chronic kidney diseas e, which is suspected as ATN. He was hypotensive on arrival requiring pressors, and he was profoundl y dehydrated. Fortunately, his creatinine has improved some with aggressive IV fluid resuscitation a nd I would continue this according to the DKA protocol. His renal ultrasound was without any obstruc tion. At this point, there are no acute indications for dialysis, but we will continue to follow isela vasques. It is unclear where his renal function will settle out. I am not clear on the timing of his m ost recent creatinine and he may have some progression of chronic kidney disease. 2. Diabetic ketoacidosis: He did have positive urine and serum ketones with blood sugar in the 900s and an elevated anion gap. With aggressive IV fluids and insulin, his gap has closed, and his gluco se has improved. They will be transitioning him to subcutaneous insulin further. It appears that he was on metformin as an outpatient reportedly and I would avoid this going forward given his renal dy sfunction. He still appears hypovolemic on exam and I would continue IV fluids as you are. 3. Hyperkalemia: This is likely due to cellular shifting from his hyperglycemia. His potassium has normalized with improvement of his glucose. He may actually require replacement going forward and t his needs to be continued to monitor closely. 4. Metabolic acidosis with an elevated anion gap: Likely related to DKA as discussed above. 5. History of hypertension: His blood pressure has been profoundly low, which is likely secondary t o severe intravascular depletion from the DKA. Blood cultures are also being sent, and he has receiv ed aggressive IV fluid resuscitation. Thank you very much for the consultation. We will continue to follow closely with you. I have discu ssed my recommendations with the hospitalist and the ICU nurse. Please do not hesitate to call with any questions. /[id number]/MODL
[2016-03-26 13:18] LABS: POTASSIUM 3.4 mEq/L (3.5-5.2)
[2016-03-26 13:31] LABS: TROPONIN I 0.184 ng/mL (0-0.034)
--- NOTE | 2016-03-26 13:46 | IR ---
Ultrasound-Guided Peripherally Inserted Central Catheter History: Diabetic ketoacidosis, hypotension. Technique: Procedure was performed with the patient in the hospital bed. Following informed consent, the right arm was prepped and draped in sterile fashion. 1% Xylocaine was used for local anesthetic. All elements of maximal sterile barrier technique including cap, mask, sterile gown, sterile gloves , large sterile sheet, hand hygiene, and 2% chlorhexidine for cutaneous antisepsis, followed. Ultraso und transducer was placed in sterile sleeve and used for real-time imaging guidance to enter the basi lic vein. Sterile coupling gel was used. 0.018 measuring wire was passed centrally , and the inter nal jugular vein was assessed sonographically to exclude retrograde malposition . A skin sal with scalpel blade was followed by removing the access needle. A 5.5 [place] peel-away sheath was followe d by a 5 [place] double-lumen central catheter, trimmed to 43 cm length. The length of catheter was estimated from external measurements. The hub of the catheter was fixed to the skin using a sterile S tatLock adhesive device, and a sterile dressing was applied. The catheter irrigated easily. A portable chest radiograph was requested and will be reported separately. Findings: No sonographic evidence of malposition in the internal jugular vein. Impression: Ultrasound-guided 5 [place] double lumen peripherally inserted central catheter; radiogr aphic confirmation is pending. - - - - - - - - - - - - - - - - - - - - - - - - - - - - - - - - - - - - - - - - - - - (Cross-cutting measures: Current medications, including all known prescriptions, dxff-sap-ddaydcj me dications, herbal medications, and nutritional supplements are listed in the medical record. The pat ient does not smoke. ) IR Call
--- NOTE | 2016-03-26 14:27 | CT ---
CT Abdomen and Pelvis Without Contrast March 26, 2016 Indication: Pain. Hypotension and renal insufficiency. Technique: Multidetector helical CT imaging was performed from the kidneys to the urinary bladder wi thout contrast. Dose reduction techniques were utilized. Findings: No pneumoperitoneum, free fluid, mesenteric edema, lymphadenopathy, mass, or retroperitonea l hematoma. A few scattered diverticula are present throughout the decompressed descending and sigmoid colon. The appendix is normal. No obstruction or adynamic ileus. Equivocal thickening of the rectal wall. No hydronephrosis, nephrolithiasis, or ureteral calculi. The urinary bladder is nearly completely emp ty. The prostate gland is normal size. The normal-sized liver contains a benign calcified granuloma in the dome. The spleen is normal size. The pancreas, gallbladder, and adrenal glands are normal. The abdominal aorta is normal caliber with moderate calcified plaque. A 4-mm noncalcified pulmonary nodule is present in the right lower lobe on image 5 of series 4 and a 7 x 4 mm nodule resides in a subpleural distribution in the left lower lobe on image 3 of series 4. N o pleural effusions. Heart size normal. No bone lesions. Old mild compression deformity of T12. Impression: 1. No localized acute intraabdominal inflammatory process or mass. No retroperitoneal hematoma. 2. No hydronephrosis ureteral calculi. 3. Minimal diverticulosis throughout the descending and sigmoid colon. No acute diverticulitis. 4. Two probably benign noncalcified pulmonary nodules in the right and left lower lobes. Recommend fo llow-up noncontrast chest CT in 6-12 months to assure benignity. The study was performed as an emergency on-call case and discussed by telephone with Dr. Cain at 1 2:50 a.m. The final interpretation is concordant with the original communication. Attention: This CT examination is specifically designed to evaluate patients who are clinically susp ected of having acute obstructive uropathy. This examination does not use radiographic contrast, and as such, provides only a limited evaluation of the abdomen, pelvis, and retroperitoneum. If there is further clinical suspicion for pathological conditions other than obstructive uropathy, a complete CT evaluation of the abdomen and pelvis utilizing intravenous, oral, and rectal contrast should be c onsidered.
--- NOTE | 2016-03-26 14:41 | DX ---
Portable AP Upright Chest March 26, 2016 at 1319 Hours History: Assess peripherally inserted central catheter. Comparison: 0021 hours of this date. Findings: Telemetry leads obscure the chest. New peripherally inserted central catheter of the right arm terminates at the junction of the superior vena cava and right atrium. 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 Sigmoid scoliosis of the thoracic spine is mode rate. Impression: New peripherally inserted central catheter of the right arm is ready to use. IR Call
[2016-03-26] MEDS: SERTRALINE HCL 100 MG TAB PO SCH (15:53)
--- NOTE | 2016-03-26 16:39 | CPEKG ---
Heart Rate: 57 RR Interval: 1053 P-R Interval: 192 QRSD Interval: 86 QT Interval: 512 QTC Interval: 499 P Richmond: 31 QRS Richmond: -25 T Wave Richmond: 210 EKG Severity - ABNORMAL ECG - EKG Impression: SINUS RHYTHM EKG Impression: BORDERLINE LEFT AXIS DEVIATION EKG Impression: NONSPECIFIC T ABNORMALITIES, LATERAL LEADS WHICH APPEAR TO BE DYNAMIC EKG Impression: BORDERLINE PROLONGED QT INTERVAL Electronically Signed By: Ken Kee 26-Mar-2016 22:07:50
[2016-03-26 16:46] LABS: ANION GAP 12 mEq/L (8-16); CALCIUM 7.8 mg/dL (8.5-10.4); CARBON DIOXIDE 20 mEq/l (22-31); CHLORIDE 103 mEq/L (97-110); CREATININE 4.1 mg/dL (0.7-1.3); GLOMERULAR FILTRATION RATE 15; GLUCOSE 156 mg/dL (70-100); POTASSIUM 3.8 mEq/L (3.5-5.2); SODIUM 135 mEq/L (134-144)
[2016-03-26 18:16] LABS: POTASSIUM 4.1 mEq/L (3.5-5.2)
[2016-03-26 18:32] LABS: TROPONIN I 0.215 ng/mL (0-0.034)
[2016-03-26] MEDS ORDERED: BISACODYL 10 MG SUPP PR PRN (19:18)
[2016-03-26] MEDS ORDERED: POLYETHYLENE GLYCOL 3350 17 GM PKT PO PRN (19:18)
[2016-03-26] MEDS ORDERED: LACTULOSE 20 GM/30 ML UDCUP PO PRN (19:18)
[2016-03-26] MEDS: FORMOTEROL IH SCH (20:45)
[2016-03-26] MEDS: MOMETASONE IH SCH (20:45)
[2016-03-26] MEDS: EZETIMIBE 10 MG TAB PO SCH (20:46)
[2016-03-26] MEDS: SENNOSIDES/DOCUSATE SODIUM TAB PO SCH (20:46)
[2016-03-26] MEDS ORDERED: FAMOTIDINE 20 MG TAB PO SCH (21:00)
[2016-03-27] MEDS: INSULIN LISPRO 100 UNIT/ML SC SCH ×6 (00:17→20:44)
[2016-03-27] MEDS: NS 1,000 ML IV SCH ×3 (00:21→13:55)
[2016-03-27] MEDS: oxyCODONE IR 5 MG TAB PO PRN ×4 (01:37→20:42)
[2016-03-27] MEDS: NYSTATIN SUSP 500000 UNIT/5 ML UDCUP PO SCH ×4 (05:21→20:36)
[2016-03-27 06:07] LABS: ALBUMIN 2.5 g/dL (3.5-5.0); ANION GAP 9 mEq/L (8-16); CALCIUM 7.9 mg/dL (8.5-10.4); CARBON DIOXIDE 21 mEq/l (22-31); CHLORIDE 105 mEq/L (97-110); CREATININE 3.1 mg/dL (0.7-1.3); GLOMERULAR FILTRATION RATE 21; GLUCOSE 163 mg/dL (70-100); MAGNESIUM 1.9 mg/dL (1.6-2.3); POTASSIUM 3.6 mEq/L (3.5-5.2); SODIUM 135 mEq/L (134-144)
[2016-03-27] MEDS: HEPARIN 5,000 UNIT/0.5 ML SYR SC SCH ×3 (06:35→23:31)
[2016-03-27] MEDS ORDERED: POTASSIUM CL 10 MEQ TAB PO ONE (08:32)
[2016-03-27] MEDS: SENNOSIDES/DOCUSATE SODIUM TAB PO SCH ×2 (08:42→20:36)
[2016-03-27] MEDS: INSULIN GLARGINE 100 UNITS/ML SYRINGE SC SCH (08:42)
[2016-03-27] MEDS: ASPIRIN EC 325 MG TAB PO SCH (08:42)
[2016-03-27] MEDS: SERTRALINE HCL 100 MG TAB PO SCH (08:42)
[2016-03-27] MEDS: FORMOTEROL IH SCH (09:13)
[2016-03-27] MEDS: MOMETASONE IH SCH (09:13)
--- NOTE | 2016-03-27 10:01 | SOAPPROG ---
SOAP Progress Note Assessment/Plan: Assessment:Plan: ARF on CRF-improving nicely -creatinine down from a high of 5.9 on admission to 3.1 today -likely due to osmotic diuresis due to uncontrolled hyperglycemia CKD-stage 4 -baseline creatinine 2.3 to 2.5 -states he had episode of ARF due to NSAIDs in past at [facility] -underlying HTN -sees Dr. Elizondo for routing nephrology care 03/27/16 09:58 Subjective: slightly nauseated eating breakfast omelet Objective: Vital Signs Temp Pulse Resp BP Pulse Ox 36.4 C 71 19 123/80 H 100 03/27/16 08:00 03/27/16 09:00 03/27/16 09:00 03/27/16 09:00 03/27/16 09:00 Laboratory Results 03/26/16 06:05 03/27/16 05:30 03/26/16 03/27/16 03/28/16 05:59 05:59 05:59 Intake Total 6105 6951 Output Total 225 3950 Balance 5880 3001 PT 13.7 SEC (12.0-15.0) 03/25/16 23:00 INR 1.06 (0.83-1.16) 03/25/16 23:00 Physical Exam - Physical Exam General Appearance: WD/WN, alert, no apparent distress EENT: normal ENT inspection Neck: normal inspection Respiratory: lungs clear, normal breath sounds, No respiratory distress Cardiac/Chest: regular rate, rhythm, No diastolic murmur, No systolic murmur Abdomen: normal bowel sounds, non-tender, soft Extremities: No swelling ICD10 Worksheet Patient Problems: Problems Problem Status Diagnosed DKA (diabetic ketoacidoses) Acute Renal failure Acute Pneumonia Acute
--- NOTE | 2016-03-27 11:14 | GCON ---
[f rep st] CONSULTATION CARDIOLOGY CONSULTATION DATE OF CONSULTATION: 03/27/2016 CHIEF COMPLAINT: Dizziness and vision changes. HISTORY OF PRESENT ILLNESS: The patient is a 50-year-old male, who is currently incarcerated, who wa s admitted to the hospital with DKA, pwdhl-uq-thypwyo kidney insufficiency, and mildly elevated tropo sravanthi. He had been feeling poorly for at least 2 weeks prior to admission. He complained of progressi ve dizziness, nausea, vision changes, and decrease in appetite. On the day of admission, he was unab le to walk a few feet without assistance. He also noted that his blood pressure, which is typically elevated, had declined. On admission to the hospital, his glucose was 942, creatinine 5.9, and potas sium 6.1. He was also hypotensive with a blood pressure of 78/52. He was treated aggressively with insulin and fluids. His blood sugar is currently down to 163, and his creatinine has improved to 3.1 . He was started on pressors, and those are currently being weaned. His troponin was also mildly el evated on admission at 0.135. It has varied throughout his hospitalization, peaking at 0.215. He di d have some chest discomfort prior to admission, which he describes as reflux-like pain around his he art. He was more concerned about his dizziness and, therefore, did not pay much attention to his yrn st discomfort. He is currently chest pain-free, and he did note that his chest discomfort was worse when lying on his left side and improved when moving to his back. His initial EKG showed lateral T-w ave inversion, which improved, but is still present by his most recent EKG. He also had an echocardi ogram which showed normal wall motion with preserved LV function. There is moderate left ventricular hypertrophy. His risk factors for coronary artery disease include hypertension, new-onset diabetes, hyperlipidemia , statin intolerant, and tobacco use. He has been unable to smoke while in retirement, which has been over the last year. Prior to that, he was smoking at least 1/2 pack of cigarettes a day. PAST MEDICAL HISTORY: 1. Chronic renal insufficiency with baseline creatinine of 2-3. 2. Hypertension. 3. Hyperlipidemia. 4. Obstructive sleep apnea. 5. Obesity. 6. Recurrent angioedema. 7. Anxiety. 8. Chronic pain. 9. Gout. 10. Multiple sclerosis. 11. Reflux. PAST SURGICAL HISTORY: Noncontributory. FAMILY HISTORY: He has a family history of diabetes and sickle cell. He denies any family history o f cardiovascular disease. SOCIAL HISTORY: He is currently in longterm. He has 5 children, all of whom are grown and living on t heir own. He does have a history of tobacco use, smoking 1/2 pack of cigarettes a day. He has been unable to smoke while in longterm, which has been over the past year. MEDICATIONS: 1. Zetia 10 mg daily. 2. Zoloft 100 mg daily. 3. Metoprolol 200 mg daily. 4. Lisinopril/hydrochlorothiazide 20/25 mg daily. 5. Pepcid 20 mg twice daily. 6. Norvasc 10 mg at bedtime. 7. Allopurinol 200 mg daily. 8. Dulera 1 puff inhaled twice daily. ALLERGIES: Tylenol, statins, and Reglan. PHYSICAL EXAMINATION: GENERAL APPEARANCE: The patient appears in no acute distress. VITAL SIGNS: Blood pressure 94/77, heart rate 60, respirations 10, oxygen saturation 99% on 3 L, afebrile. NECK: No carotid bruits or JVD present. No obvious goiter. LUNGS: Clear to auscultation. No wheezes, r honchi, or crackles auscultated. CARDIAC: Regular rate and rhythm, without any murmurs, rubs, or ga llops appreciated. ABDOMEN: Soft, nontender, nondistended. Bowel sounds present. EXTREMITIES: Pa lpable pulses bilaterally without any evidence of significant edema. NEUROLOGIC: Nonfocal. PSYCHIA TRIC: Mood and affect appropriate. SKIN: No obvious rashes or ecchymosis identified. LABORATORY DATA: Troponin on admission 0.135, currently 0.215. Glucose 942 on admission and current ly 163. Sodium currently 135, potassium 3.6, chloride 105, bicarb 21, creatinine 3.1, BUN 43. Trigl ycerides 772, total cholesterol 314, LDL unable to be calculated, HDL 26. TSH 1.95. REPORTS: His initial EKG reveals normal sinus rhythm with T-wave inversion in the lateral leads from V4 through V6. His most recent EKG shows an improvement in the T-wave changes, but he still has T-w ave inversion in V6 and flattening in V5. His QTc is also prolonged on this EKG at 499, but was norm al on his initial EKG. His echocardiogram revealed normal wall motion with preserved LV function. H e does have moderate left ventricular hypertrophy. ASSESSMENT: The patient is a 50-year-old male with a history of hypertension and hyperlipidemia, adm itted with diabetic ketoacidosis, rdmlf-dq-nwvesnz renal failure, and mildly elevated troponin. PLAN: 1. The patient presents with a mildly elevated troponin, which is likely secondary to his acute-on-c hronic renal insufficiency. He does have multiple risk factors for coronary artery disease and his E KG on admission was abnormal with lateral T-wave inversion. His EKG is improving; but, given his ris k factors, abnormal EKG, and mildly elevated troponin, I do think he needs further risk stratificatio n prior to discharge from the hospital. I would plan for an exercise nuclear stress test. If he is unable to exercise secondary to dizziness, he could be switched to Lexiscan. The patient states that he feels like he will be able to walk within the next 1-2 days. Ideally, I would like to avoid an a ngiogram given his history of renal disease. 2. He has a history of hyperlipidemia and is statin intolerant. He will remain on Zetia. 3. Hypertension, currently hypotensive. His pressure is improving with fluid resuscitation. His an tihypertensive medications are currently on hold. Continue to monitor. 4. Hojxy-gr-nhhncml renal failure improving. Nephrology has been consulted. 5. DKA currently being treated by Internal Medicine. 6. Prolonged QTc on his most recent EKG of 499. His initial EKG showed normal QTc. We will plan to repeat an EKG tomorrow. /[id number]/MODL
[2016-03-27] MEDS: ONDANSETRON 4 MG/2 ML VIAL IVP PRN ×2 (12:34→21:44)
[2016-03-27] MEDS ORDERED: METOCLOPRAMIDE 5 MG TAB PO PRN (15:12)
--- NOTE | 2016-03-27 15:15 | HOSPPROG ---
Hospitalist Progress Note Assessment/Plan: DKA - Gap closed, transitioned to SC Insulin yesterday with adequate glycemic control today. Will need insulin and diabetes education. A1c pending. SHEILA / CKD - suspect underlying diabetic nephropathy vs hypertensive CKD, renal u /s normal. Baseline Cr 2.3. Query pre-renal vs ATN with hypotension. Cr improving with volume resuscitation, cont IVF's. Appreciate renal assistance. Hyperkalemia - resolved with intracellular shifting after initiation of insulin therapy. Hypotension - pt has h/o hypertension, but hypotensive here, volume responsive, off pressors this am. Cont to hold anti-hypertensives, resume as indicated. Elevated troponin - CP free. Trop level up and down, likely due to poor renal clearance. Query strain in setting of acute illness. T wave inversions on EKG which is a change from prior, improved on repeat EKG. No WMA on echo. TG's > 700, HDL 26. Will cont daily ASA, resume Zetia, statin intolerant. BB held due to hypotension. Appreciate Cardiology input, will plan for exercise nuclear stress test prior to dc. Pulmonary nodule - needs outpt f/u Full code DVT PPLX - EUFEMIA Dispo - cont inpt Subjective: Pt has N/V today. No known h/o gastroparesis, but reports symptoms worse after eating. Has allergy to Reglan. No fevers/chills. No CP or SOB. Objective: Vital Signs Temp Pulse Resp BP Pulse Ox 36.5 C 88 20 100/57 L 90 L 03/27/16 12:00 03/27/16 13:58 03/27/16 13:58 03/27/16 13:58 03/27/16 13:58 Laboratory Results 03/26/16 06:05 03/27/16 05:30 03/26/16 03/27/16 03/28/16 05:59 05:59 05:59 Intake Total 6105 6951 Output Total 225 3950 Balance 5880 3001 PT 13.7 SEC (12.0-15.0) 03/25/16 23:00 INR 1.06 (0.83-1.16) 03/25/16 23:00 - Physical Exam Constitutional: no apparent distress Eyes: PERRL Ears, Nose, Mouth, Throat: moist mucous membranes Cardiovascular: regular rate and rhythym, no murmur, rub, or gallop Respiratory: no respiratory distress, clear to auscultation Gastrointestinal: normoactive bowel sounds, soft, non-tender abdomen Skin: warm Neurologic: AAOx3 Psychiatric: interacting appropriately ICD10 Worksheet Patient Problems: Problems Problem Status Diagnosed DKA (diabetic ketoacidoses) Acute Renal failure Acute Pneumonia Acute
[2016-03-27] MEDS: FLUTICASONE/SALMETER 250/50MCG DISKUS IH SCH ×2 (15:32→22:46)
[2016-03-27] MEDS: PANTOPRAZOLE SODIUM 40 MG TAB PO SCH (17:40)
[2016-03-27] MEDS: EZETIMIBE 10 MG TAB PO SCH (20:36)
[2016-03-27] MEDS ORDERED: FAMOTIDINE 20 MG TAB PO SCH (21:00)
[2016-03-27] MEDS ORDERED: FLUTICASONE/SALMETER 250/50MCG DISKUS IH SCH (21:00)
[2016-03-28] MEDS: oxyCODONE IR 5 MG TAB PO PRN ×2 (02:05→09:54)
[2016-03-28] MEDS: NYSTATIN SUSP 500000 UNIT/5 ML UDCUP PO SCH ×2 (05:49→12:21)
[2016-03-28] MEDS: HEPARIN 5,000 UNIT/0.5 ML SYR SC SCH ×2 (05:49→15:01)
[2016-03-28 06:22] LABS: ALBUMIN 2.9 g/dL (3.5-5.0); ANION GAP 7 mEq/L (8-16); CALCIUM 8.5 mg/dL (8.5-10.4); CARBON DIOXIDE 21 mEq/l (22-31); CHLORIDE 110 mEq/L (97-110); CREATININE 2.2 mg/dL (0.7-1.3); GLOMERULAR FILTRATION RATE 32; GLUCOSE 80 mg/dL (70-100); MAGNESIUM 1.7 mg/dL (1.6-2.3); SODIUM 138 mEq/L (134-144)
[2016-03-28] MEDS: INSULIN LISPRO 100 UNIT/ML SC SCH ×3 (08:56→12:31)
[2016-03-28] MEDS ORDERED: INSULIN GLARGINE 100 UNITS/ML SYRINGE SC SCH ×2 (09:17→12:30)
[2016-03-28] MEDS: FLUTICASONE/SALMETER 250/50MCG DISKUS IH SCH (09:49)
[2016-03-28] MEDS: SENNOSIDES/DOCUSATE SODIUM TAB PO SCH (09:54)
[2016-03-28] MEDS: PANTOPRAZOLE SODIUM 40 MG TAB PO SCH (09:54)
[2016-03-28] MEDS: ASPIRIN EC 325 MG TAB PO SCH (09:54)
[2016-03-28] MEDS: SERTRALINE HCL 100 MG TAB PO SCH (09:54)
[2016-03-28] MEDS ORDERED: REGADENOSON 0.4 MG/5 ML SYR IVP ONE (10:59)
--- NOTE | 2016-03-28 11:09 | PDCARPN ---
Cardiology Progress Note Chief Complaint: dizziness Assessment/Plan: Assessment: Roro is a 50 y/o M who presented to the ER with two weeks of progressive dizziness, nausea, and lack of appetite. He was found to have DKA, acute on chronic renal insufficiency, and mildly elevated troponin. He was treated with aggressive insulin and fluids. He was also on pressors for hypotension which have been weaned off. Plan: 1. mildly elevated troponin with EKG changes and atypical cp. He does have multiple risk factors for CAD. Nuc stress results pending. 2. DKA- improved. 3. acute on chronic renal insufficiency- improved 4. HTN/hypotension-improving. antihypertensive meds on hold 5. Long QTc-resolved by EKG today. 6. HLP- statin intolerant, continue Zetia. 7. WCT- on tele (VT versus a.fib with aberrancy). Resume BB once his blood pressure is more stable, likely 1-2 days. 03/28/16 12:46 Subjective: C/o dizziness but denies any further chest discomfort. Objective: Vital Signs (8 Hrs) Temp Pulse Resp BP BP BP BP 03/28/16 10:19 107/70 99/73 L 121/71 H 03/28/16 07:54 36.4 C 87 16 133/79 H 03/28/16 05:37 36.3 C 76 14 125/79 H 03/28/16 04:00 73 18 112/72 Pulse Ox 03/28/16 10:19 03/28/16 07:54 99 03/28/16 05:37 100 03/28/16 04:00 99 Intake/Output (24 Hrs) 03/27/16 03/28/16 03/29/16 05:59 05:59 05:59 Intake Total 6951 3700 500 Output Total 3950 2450 300 Balance 3001 1250 200 Intake: Oral (ml) 1400 480 500 IV Infused (ml) 5551 3220 Insulin Regular Human 100 108 unit In Ns 100 ml @ Per Protocol IV AD EUFEMIA Rx#: [id number] Norepinephrine Bitartrate 983 4 mg In D5w 500 ml @ Titrate IV CONT EUFEMIA Rx#: [id number] Ns 1,000 ml @ 150 mls/hr 3708 3220 IV CONT EUFEMIA Rx#: [id number] D5w 1,000 ml @ As 752 Directed IV CONT EUFEMIA Rx#: [id number] Output: Urine (ml) 3950 2450 300 Catheter 3950 1200 Urinal 1250 300 Other: Number of Voids Urinal 1 Result Diagrams: 03/26/16 06:05 03/28/16 05:40 Cardiac Labs: Cardiac Lab Results (72 Hrs) 03/26/16 03/26/16 03/26/16 17:50 12:23 06:05 Troponin I 0.215 H 0.184 H 0.104 H - Physical Exam Constitutional: WDWN Cardiovascular: regular rate and rhythm, no murmurs, no rubs, no gallops Respiratory: clear to auscultate bilat, no crackles, no wheezes Skin: no edema ICD10 Worksheet Patient Problems: Problems Problem Status Diagnosed DKA (diabetic ketoacidoses) Acute Renal failure Acute Pneumonia Acute
--- NOTE | 2016-03-28 11:58 | CPR ---
[f rep st] NONINVASIVE CARDIAC PROCEDURE REPORT DATE OF PROCEDURE: 03/28/2016 PROCEDURE: Lexiscan nuclear stress test. INDICATION: The patient is a 50-year-old male, who presented to the hospital with DKA, lneoi-br-qwkn philip renal failure, and mildly elevated troponin. His EKG was also abnormal with lateral T-wave inver audrey. He was complaining of chest discomfort that he described as reflux around his heart. This did not occur with exertion. His troponin was mildly elevated, which prompted the nuclear stress test. His risk factors for coronary artery disease include diabetes, hypertension, hyperlipidemia, statin i ntolerance, and prior tobacco use. PROCEDURE IN DETAIL: Consent was obtained, and the patient was placed on continuous telemetry. His resting EKG revealed normal sinus rhythm with lateral and inferior T-wave flattening. The patient wa s infused with Lexiscan and complained of dizziness. He remained in normal sinus rhythm, but did bec ome slightly tachycardic with the infusion. His blood pressure at rest was 100/64 and remained stabl e throughout the study. PLAN: Await nuclear images. /[id number]/MODL
[2016-03-28 12:04] VITALS: PULSE 91; RESP 14; TEMP 97.3; O2SAT 92
[2016-03-28] MEDS: INSULIN GLARGINE 100 UNITS/ML SYRINGE SC SCH (12:53)
--- NOTE | 2016-03-28 13:10 | NM ---
Nuclear Medicine Myocardial Perfusion Scan Clinical History: 50-year-old male with pnkui-zl-svvirxt renal insufficiency admitted with diabetic k etoacidosis and mildly elevated serum troponin level with some chest discomfort and dizziness, hyperl ipidemia, tobacco use, and a recent ECG showing lateral T wave inversion. Rule out myocardial ischemi a. Radiopharmaceutical: 10.2 mCi of IV technetium 99m sestamibi (Cardiolite), during the rest portion a nd 26 mCi of IV technetium 99m sestamibi during the stress portion. Medical Pharmaceutical: 0.4 mg of IV Lexiscan. Technique: After the respective rest and stress sequences, images were acquired tomographically and r eviewed on the PACS computer workstation using [employer] [facility] software. Comparison Study: None. Findings: There is minimal thinning of the inferolateral junction near the base, with no additional p erfusion at rest to suggest myocardial ischemia. The left ventricular contractility appears normal, w ith a computer-generated LVEF of 73%. Impression: There is no scintigraphic evidence of myocardial ischemia. As requested, results were texted to Dr. Flor Vences. A test result has been communicated to a licensed care provider and documented in [employer], 1:01:56 PM , 03/28/2016, [employer] Message ID [id number].
[2016-03-28 13:38] VITALS: BP 117/74
--- NOTE | 2016-03-28 13:55 | SOAPPROG ---
SOAP Progress Note Assessment/Plan: Assessment:Plan: ARF on CRF-improving nicely -creatinine down from a high of 5.9 on admission to 2.2 today -likely due to osmotic diuresis due to uncontrolled hyperglycemia CKD-stage 4 -baseline creatinine 2.3 to 2.5 -states he had episode of ARF due to NSAIDs in past at [facility] -underlying HTN -sees Dr. Elizondo for routing nephrology care -continue to avoid NSAIDs and IV contrast CV-nuc med scan negative 03/28/16 13:54 Subjective: stable overnite Objective: Vital Signs Temp Pulse Resp BP Pulse Ox 36.3 C 91 14 117/74 92 03/28/16 12:03 03/28/16 12:03 03/28/16 12:03 03/28/16 13:33 03/28/16 12:03 Laboratory Results 03/26/16 06:05 03/28/16 05:40 03/27/16 03/28/16 03/29/16 05:59 05:59 05:59 Intake Total 6951 3700 500 Output Total 3950 2450 300 Balance 3001 1250 200 PT 13.7 SEC (12.0-15.0) 03/25/16 23:00 INR 1.06 (0.83-1.16) 03/25/16 23:00 Physical Exam - Physical Exam General Appearance: WD/WN, alert, no apparent distress, obese EENT: normal ENT inspection Neck: normal inspection Respiratory: normal breath sounds, No respiratory distress Cardiac/Chest: regular rate, rhythm, No diastolic murmur, No systolic murmur Abdomen: normal bowel sounds Extremities: No swelling ICD10 Worksheet Patient Problems: Problems Problem Status Diagnosed DKA (diabetic ketoacidoses) Acute Renal failure Acute Pneumonia Acute
--- NOTE | 2016-03-28 14:19 | PDIAF ---
- Diagnosis Diagnosis: DM Code Status: Full Code - Medication Management Discharge Medications: Medications to Continue on Transfer Allopurinol [Allopurinol 100 MG (*)] 200 mg PO DAILY 03/26/16 [Last Taken ] Ezetimibe [Zetia 10 MG (*)] 10 mg PO HS 03/26/16 [Last Taken 03/25/16] Famotidine [Pepcid 20 MG (*)] 20 mg PO BID 03/26/16 [Last Taken 03/25/16] Mometasone/Formoterol [Dulera 100 Mcg/5 Mcg Inhaler] 1 puffs IH BID 03/26/16 [ Last Taken 03/25/16] Sertraline HCl [Zoloft 100mg (*)] 100 mg PO DAILY 03/26/16 [Last Taken 03/25/16] Aspirin EC [Aspirin EC 325 mg (*)] 325 mg PO DAILY #30 tab 03/28/16 [Last Taken Unknown] Insulin Glargine [Lantus 100 UNITS/ML (*)] 50 units SC DAILY #30 ml 03/28/16 [ Last Taken Unknown] Insulin Lispro [humALOG LISPRO 100 units/ml (*)] 0 unit SC TIDMEAL #10 vial 01/02 [Last Taken Unknown] Metoprolol Succinate Xr [Toprol Xl 25 mg (*)] 25 mg PO DAILY #30 tab.sr [Last Taken Unknown] Discharge Medications: Refer to the Discharge Home Medication list for PRN reason. PICC Care - Routine: N/A - Orders Diet Recommendation: ADA 2000 consistent carb Additional: BP meds are held, currently normotensive. Metoprolol resumed at lower dose, up-titrate and resume other anti-hypertensives as indicated. - Labs/Radiology BMP Date: 03/30/16 Other Lab Name, Date and Time: Daily BP checks and resume anti-hypertensives as indicated. - Follow Up Care Current Providers and Referrals: Patient,NotPresent [Unknown] - As per Instructions James Elizondo MD [Medical Doctor] -
[2016-03-28] MEDS ORDERED: NS 1,000 ML IV ONE (14:30)
--- NOTE | 2016-03-28 19:04 | GDS ---
[f rep st] DISCHARGE SUMMARY DISCHARGE DIAGNOSES: 1. Diabetic ketoacidosis, resolved. 2. Diabetes mellitus with new insulin dependence. 3. Acute kidney injury on chronic kidney disease with a baseline creatinine of 2.3-2.5. 4. Hyperkalemia, resolved. 5. Hypotension, resolved. 6. Elevated troponin with a negative nuclear stress test. 7. Pulmonary nodule. CONSULTANTS: 1. Dr. Columba Patel, nephrology. 2. Ramila Alford, cardiology. HISTORY: For details, please see dictated history and physical dated March 26, 2013, by Dr. Cammie Phillips. In brief, the patient is a 50-year-old male with a history of diabetes, hypertension, hyper lipidemia, and chronic kidney disease who presents to the emergency department with weight loss, incr eased thirst, and polyuria. He was found to have a blood sugar in the 900s with an anion gap acidosi s and was admitted to the hospital for management of DKA. HOSPITAL COURSE: The patient was admitted to the ICU, started on DKA protocol with IV fluids, an ins ulin drip, and serial chemistries. His anion gap closed by the following day, and he was transitione d to subcutaneous insulin. He presented with hypotension likely secondary to hypovolemia and was flu id responsive. His blood pressure medications were held. He also had a serum creatinine of 5.9 on a rrival likely due to osmotic diuresis in the setting of hyperglycemia and DKA. Per review of his rec ord, his baseline creatinine appears to be 2.3-2.5, and he is followed by Dr. Ricardo Elizondo at [facility]. At the time of discharge, his creatinine has returned to his baseline range. In addition, he had a slightly elevated troponin which was labile ranging from 0.104-0.215. This is thought secondary to his poor renal clearance, and he likely had some subendocardial ischemia seconda ry to his acute illness. Once his condition stabilized, he underwent myocardial nuclear medicine per fusion scan which was negative for myocardial ischemia. He will be continued on daily aspirin, stati n, and his beta-blockers resumed at a lower dose until his blood pressure can tolerate up titration. At discharge, his lisinopril and hydrochlorothiazide are both held as his blood pressure is in the o ne-teens to 120s systolic. These can be resumed as indicated, and he will need a daily blood pressur e checks. DISPOSITION: The patient is discharged back to [facility] in stable condition. FOLLOWUP: 1. Primary care physician or a physician at the [facility] in 1-2 days for close blood pres sure monitoring as well as blood sugar monitoring. He should have every q.a.c. and h.s. blood sugar checks. 2. Dr. Ricardo Elizondo, nephrology, for ongoing management of his chronic kidney disease. DISCHARGE MEDICATIONS: Please see [facility] for complete updated outpatient medication list. New med ications on discharge include: 1. Aspirin 325 mg p.o. daily, #30. No refills. 2. Insulin glargine 50 units subcutaneous daily, #30. No refills. 3. Insulin Lispro sliding scale as written. 4. Metoprolol succinate XR 25 mg p.o. daily. As above, his Toprol-XL should be up titrated as indicated by his blood pressure, and his lisinopril and hydrochlorothiazide may be resumed also indicated. /[id number]/MODL
== END 2016-03-28 15:15 | DRG 638 ==
LOC: EDUNIT# → EEVIPCON 03-26 01:15 → F2N 03-26 02:27
PROVIDERS: ADMIT Internal Medicine; ATTEND Internal Medicine
PROC: 02HV33Z Insertion of Infusion Device into Superior Vena Cava, Percutaneous Approach (ICD-10-PCS; principal; 2016-03-26)
DX: E13.10 Other specified diabetes mellitus with ketoacidosis without coma (principal); N18.4 Chronic kidney disease, stage 4 (severe); N17.9 Acute kidney failure, unspecified; B37.0 Candidal stomatitis; F11.20 Opioid dependence, uncomplicated; R91.1 Solitary pulmonary nodule; E87.5 Hyperkalemia; I12.9 Hypertensive chronic kidney disease with stage 1 through stage 4 chronic kidney disease, or unspecified chronic kidney disease; I95.9 Hypotension, unspecified; E78.5 Hyperlipidemia, unspecified; G47.33 Obstructive sleep apnea (adult) (pediatric); E66.9 Obesity, unspecified; M10.9 Gout, unspecified; G89.29 Other chronic pain; Z87.891 Personal history of nicotine dependence
CPT/HCPCS: 80305; 82947-QW; 96374; 97161-GP; A9500; C1751; J1815; J2405; J2785; J3010

== ENCOUNTER 2016-04-05 22:07 | Observation (INO) | payer MEDICAID, OTHER ==
--- NOTE | 2016-04-05 22:41 | EDPHY ---
H & P Stated Complaint: pt newly dx diabetic, has no meds, needs info regarding DM - Medical/Surgical History Hx Asthma: No Hx Chronic Respiratory Disease: No Hx Diabetes: Yes Hx Cardiac Disease: Yes Hx Renal Disease: Yes Hx Cirrhosis: No Hx Alcoholism: No Hx HIV/AIDS: No Hx Splenectomy or Spleen Trauma: No Other PMH: uncontrolled HTN, renal insufficiency, tumor wrapped around brain stem ANXIETY. DM II, hld, BOBO. chronic pain - Social History Smoking Status: Light smoker Time Seen by Provider: 04/05/16 22:20 HPI/ROS: CHIEF COMPLAINT: I have got diabetes" HISTORY OF PRESENT ILLNESS: 50-year-old male with recent hospitalization for diabetic ketoacidosis, acute kidney injury, was released from correction this evening and states that he was told to come to the emergency department to discuss his diabetes management. He has no medications. He was not discharged with any medications from the correction. He has been on a course of sliding scale Humalog and 50 units Lantus at bedtime. He is homeless. He has no cell phone with him. He has no primary care provider. He states that he is currently feeling well and brings a diary of his recent serum glucose levels. PRIMARY CARE PROVIDER: None REVIEW OF SYSTEMS: A ten point review of systems was performed and is negative with the exception of the items mentioned in the HPI PAST MEDICAL & SURGICAL HISTORY: Recent hospitalization for DKA. Diabetes with new insulin dependence. Chronic kidney disease. SOCIAL HISTORY:homeless. Released from correction this evening. PHYSICAL EXAM (Prior to examination, patient consented to physical exam, hands were washed and my usual and customary physical exam procedures followed) 1) GENERAL: Obese, alert and oriented. Appears to be in no acute distress. 2) HEAD: Normocephalic, atraumatic 3) HEENT: Pupils equal, round, reactive to light bilaterally. Sclera anicteric. 4) NECK: Full range of motion, no meningeal signs. 5) LUNGS: Clear auscultation bilaterally, no wheezes, no rhonchi, no retractions. 6) HEART: Regular rate and rhythm, no murmur, no heave, no gallop. 7) ABDOMEN: No guarding, no rebound, no focal tenderness, 8) MUSCULOSKELETAL: Moving all extremities, no focal areas of tenderness, no obvious trauma. No peripheral edema or discoloration. 9) BACK: No CVA tenderness. 10) SKIN: No rash, no petechiae. 11) Psychiatric: Patient is oriented X 3, there is no agitation. DIFFERENTIAL DIAGNOSIS: In no particular order including but not limited to hyperglycemia, DKA, lack of social support (Norman,Jami Mathews) Constitutional: Initial Vital Signs Temperature (C) 37 C 04/05/16 22:13 Heart Rate 70 04/05/16 22:13 Respiratory Rate 16 04/05/16 22:13 Blood Pressure 154/94 H 04/05/16 22:13 O2 Sat (%) 96 04/05/16 22:13 O2 Delivery Mode Room Air Allergies/Adverse Reactions: acetaminophen [From Tylenol] Allergy (Severe, Verified 04/05/16 22:17) Swelling/neck,face,throat Hbzynjg-Seu-Fhj Reductase Inhibitor Allergy (Unknown, Verified 04/05/16 22:17) metoclopramide HCl [From Reglan] Allergy (Verified 04/05/16 22:17) Home Medications: Medication Instructions Recorded Famotidine [Pepcid 20 MG (*)] 20 mg PO BID 03/26/16 Aspirin EC [Aspirin EC 325 mg (*)] 325 mg PO DAILY #30 tab 03/28/16 Allopurinol [Allopurinol 100 MG 200 mg PO DAILY #30 tab 04/06/16 (*)] Ezetimibe [Zetia 10 MG (*)] 10 mg PO HS #30 tab 04/06/16 Insulin Glargine [Lantus 100 25 units SC HS 30 Days 04/06/16 UNITS/ML (*)] Metoprolol Succinate Xr [Toprol Xl 25 mg PO DAILY #30 tab.sr 04/06/16 25 mg (*)] Mometasone/Formoterol [Dulera 100 1 puffs IH BID #1 hfa.aer.ad 04/06/16 Mcg/5 Mcg Inhaler] Sertraline HCl [Zoloft 100mg (*)] 100 mg PO DAILY #30 tab 04/06/16 amLODIPine BESYLATE [Norvasc 5 mg 5 mg PO DAILY #30 tab 04/06/16 (*)] Medical Decision Making ED Course/Re-evaluation: Patient also seen and examined by Dr. Arthur Cain in the ER. This patient has no medical resources, as recent hospitalization for significant illness. He has no cell phone, no home. I do not think that discharging the patient from the emergency department at this time is appropriate as I think he necessitates Case Management evaluation, medication teaching and follow up with primary care. We discussed admission to the hospital which he is agreeable with. Spoke with Dr. Hernandez at 1149 pm who will admit patient to [facility] with plan to have case management consultation in the morning, medication teaching, prescription filled. (Jami Austin) - Data Points Laboratory Results: Laboratory Results 04/05/16 22:50 04/05/16 22:50 Medications Given: Discontinued Medications Insulin Glargine (Lantus Syringe) 50 units SC HS EUFEMIA Stop: 10/03/16 00:59 Last Admin: 04/06/16 02:54 Dose: 50 units Insulin Human Lispro (Humalog Lispro) 0 unit SC TIDMEAL EUFEMIA PRN Reason: Protocol Stop: 10/03/16 07:59 Last Admin: 04/06/16 16:03 Dose: Not Given Oxycodone HCl (Oxycodone Ir) 5 mg PO Q4HRS PRN PRN Reason: Pain, Severe Able to Take PO Stop: 04/16/16 01:45 Last Admin: 04/06/16 02:54 Dose: 5 mg Departure - Departure Disposition: [facility] Inpatient Acute Clinical Impression: Homeless single person Diabetes Qualifiers: Diabetes mellitus type: type 1 Diabetes mellitus complication status: with kidney complications Diabetes mellitus complication detail: with chronic kidney disease Chronic kidney disease stage: unspecified stage Qualifier Code: (E10.22 ) Type 1 diabetes mellitus with diabetic chronic kidney disease Condition: Fair
[2016-04-05 23:05] LABS: % IMMATURE GRANULYOCYTES 0.6 % (0.0-1.1); ABSOLUTE IMMATURE GRANULOCYTES 0.03 10^3/uL (0.00-0.10); ADD DIFF? NO; ADD MORPH? NO; ADD SCAN? NO; ATYPICAL LYMPHOCYTE FLAG 10 (0-99); FRAGMENT RBC FLAG 20 (0-99); HEMATOCRIT 31.3 % (40.0-51.0); HEMOGLOBIN 10.4 g/dL (13.7-17.5); LEFT SHIFT FLG 0 (0-99); LIPEMIA HEMOLYSIS FLAG 80 (0-99); MEAN CELL HEMOGLOBIN 25.7 pg (27.9-34.1); MEAN CELL HEMOGLOBIN CONCENTR. 33.2 g/dL (32.4-36.7); MEAN CELL VOLUME 77.5 fL (81.5-99.8); PLATELET CLUMPS FLAG 0 (0-99); PLATELET COUNT 193 10^3/uL (150-400); RED BLOOD CELL COUNT 4.04 10^6/uL (4.40-6.38); RED CELL DISTRIBUTION WIDTH 15.9 % (11.5-15.2)
[2016-04-05 23:25] LABS: ANION GAP 10 mEq/L (8-16); CARBON DIOXIDE 25 mEq/l (22-31); CHLORIDE 105 mEq/L (97-110); CREATININE 1.9 mg/dL (0.7-1.3); GLOMERULAR FILTRATION RATE 37; GLUCOSE 98 mg/dL (70-100); POTASSIUM 4.2 mEq/L (3.5-5.2); SODIUM 140 mEq/L (134-144)
[2016-04-06] MEDS ORDERED: D50W 25 GM/50 ML SYR IVP PRN (00:55)
[2016-04-06] MEDS ORDERED: INSULIN GLARGINE 100 UNITS/ML SYRINGE SC SCH ×2 (01:00→09:10)
[2016-04-06 01:08] VITALS: O2SAT 94
[2016-04-06] MEDS ORDERED: oxyCODONE IR 5 MG TAB PO PRN (01:46)
--- NOTE | 2016-04-06 04:50 | PDGENHP ---
History and Physical - Chief Complaint unable to administer insulin - History of Present Illness Patient is a 50-year-old male with history of hypertension, hyperlipidemia, obesity, CKD and recently diagnosed DM 2 after hospital admission here at [facility] for DKA. The patient had had arrived at [facility] for that prior admission from longterm, was treated for his DKA and initiated on an insulin regimen and then discharged back to the longterm on . Today, 04/05, patient was released from longterm after completing his sentence at around 7:00 p.m. without any prescriptions or medical supplies. Prior to being incarcerated he had lived in a mobile home/RV, but patient reports his brother came from [place] and drove his RV away, leaving him currently homeless. Given the lack of medications and no were to go and inability to obtain medications, he decided to come to the ER. He denies any specific symptoms, but states he has no idea how to manage his diabetes, was reports not being instructed on how to inject insulin. ED evaluation revealed normal vital signs, normal labs including improved creatinine and normal blood sugar. History Information - Allergies/Home Medication List Allergies/Adverse Reactions: acetaminophen [From Tylenol] Allergy (Severe, Verified 04/05/16 22:17) Swelling/neck,face,throat Petmxgq-Qdp-Djv Reductase Inhibitor Allergy (Unknown, Verified 04/05/16 22:17) metoclopramide HCl [From Reglan] Allergy (Verified 04/05/16 22:17) Home Medications: Allopurinol [Allopurinol 100 MG (*)] 200 mg PO DAILY 03/26/16 [Last Taken ] Ezetimibe [Zetia 10 MG (*)] 10 mg PO HS 03/26/16 [Last Taken 03/25/16] Famotidine [Pepcid 20 MG (*)] 20 mg PO BID 03/26/16 [Last Taken 03/25/16] Mometasone/Formoterol [Dulera 100 Mcg/5 Mcg Inhaler] 1 puffs IH BID 03/26/16 [ Last Taken 03/25/16] Sertraline HCl [Zoloft 100mg (*)] 100 mg PO DAILY 03/26/16 [Last Taken 03/25/16] I have personally reviewed and updated: family history, medical history, social history, surgical history - Past Medical History Additional medical history: Hypertension. HLD. Obesity with obstructive sleep apnea. Chronic pain syndrome. Gout. CKD stage III. 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 Prior to incarceration was living in an RV, which is brother has removed from the area. Currently homeless and unemployed. Review of Systems ROS: 10pt was reviewed & negative except for what was stated in HPI & below Physical Exam Temp Pulse Resp BP Pulse Ox 36.8 C 64 16 161/91 H 94 04/06/16 01:38 04/06/16 01:38 04/06/16 01:38 04/06/16 01:38 04/06/16 01:38 Constitutional: no apparent distress, appears nourished, not in pain Eyes: PERRL, anicteric sclera, EOMI Ears, Nose, Mouth, Throat: moist mucous membranes, hearing normal, ears appear normal, no oral mucosal ulcers Cardiovascular: regular rate and rhythym, no murmur, rub, or gallop, pulses symmetric bilaterally, No JVD, No edema Peripheral Pulses: 2+: dorsalis-pedis (R), dorsalis-pedis (L) Respiratory: no respiratory distress, no rales or rhonchi, clear to auscultation Gastrointestinal: normoactive bowel sounds, soft, non-tender abdomen, no palpable masses Genitourinary: no bladder fullness, no bladder tenderness Skin: warm, normal color, no rashes or abrasions, no fluctuance, no induration, No mottled Musculoskeletal: full muscle strength, no muscle tenderness, normal joint ROM, no joint effusions Neurologic: AAOx3, sensation intact bilaterally, CN II-XII Intact, No weakness, No numbness Psychiatric: interacting appropriately, not anxious, not encephalopathic, thought process linear Lab Data & Imaging Review 04/05/16 22:50 04/05/16 22:50 WBC 4.70 10^3/uL (3.80-9.50) 04/05/16 22:50 RBC 4.04 10^6/uL (4.40-6.38) L 04/05/16 22:50 Hgb 10.4 g/dL (13.7-17.5) L 04/05/16 22:50 Hct 31.3 % (40.0-51.0) L 04/05/16 22:50 MCV 77.5 fL (81.5-99.8) L 04/05/16 22:50 MCH 25.7 pg (27.9-34.1) L 04/05/16 22:50 MCHC 33.2 g/dL (32.4-36.7) 04/05/16 22:50 RDW 15.9 % (11.5-15.2) H 04/05/16 22:50 Plt Count 193 10^3/uL (150-400) 04/05/16 22:50 MPV 11.0 fL (8.7-11.7) 04/05/16 22:50 Neut % (Auto) 56.9 % (39.3-74.2) 04/05/16 22:50 Lymph % (Auto) 31.3 % (15.0-45.0) 04/05/16 22:50 [place] % (Auto) 8.7 % (4.5-13.0) 04/05/16 22:50 Eos % (Auto) 1.9 % (0.6-7.6) 04/05/16 22:50 Baso % (Auto) 0.6 % (0.3-1.7) 04/05/16 22:50 Nucleat RBC Rel Count 0.0 % (0.0-0.2) 04/05/16 22:50 Absolute Neuts (auto) 2.67 10^3/uL (1.70-6.50) 04/05/16 22:50 Absolute Lymphs (auto) 1.47 10^3/uL (1.00-3.00) 04/05/16 22:50 Absolute Monos (auto) 0.41 10^3/uL (0.30-0.80) 04/05/16 22:50 Absolute Eos (auto) 0.09 10^3/uL (0.03-0.40) 04/05/16 22:50 Absolute Basos (auto) 0.03 10^3/uL (0.02-0.10) 04/05/16 22:50 Absolute Nucleated RBC 0.00 10^3/uL (0-0.01) 04/05/16 22:50 Immature Gran % 0.6 % (0.0-1.1) 04/05/16 22:50 Immature Gran # 0.03 10^3/uL (0.00-0.10) 04/05/16 22:50 Sodium 140 mEq/L (134-144) 04/05/16 22:50 Potassium 4.2 mEq/L (3.5-5.2) 04/05/16 22:50 Chloride 105 mEq/L (97-110) 04/05/16 22:50 Carbon Dioxide 25 mEq/l (22-31) 04/05/16 22:50 Anion Gap 10 mEq/L (8-16) 04/05/16 22:50 BUN 15 mg/dL (7-23) 04/05/16 22:50 Creatinine 1.9 mg/dL (0.7-1.3) H 04/05/16 22:50 Estimated GFR 37 04/05/16 22:50 Glucose 98 mg/dL (70-100) 04/05/16 22:50 Calcium 9.0 mg/dL (8.5-10.4) 04/05/16 22:50 Assessment & Plan Assessment: Patient is a 50-year-old male with a history of new onset diabetes (diagnosed with DKA presentation), hypertension hyperlipidemia CKD and obesity who presents to the ED after being released from longterm stating is has no prescribed medications, with no understanding of his diabetes diagnosis and inability to inject himself with insulin. He is also newly homeless. Plan: # DM2 Glucose and all labs wnl. Will give prescription for insulin regimen and provide diabetic eduction and training. Will cont discharged regimen (lantus 50 and lispro sliding scale coverage). # HTN BP slightly elevated on arrival, pt asymptomatic. Will restart outpt med regimen. # CKD Renal function appears improved from previous baseline. # Dispo: admit as observation status, for case management aid in arranging services for outpatient management of his multiple chronic medical conditions. # full code
[2016-04-06] MEDS ORDERED: IOPAMIDOL (ISOVUE-300) 50 ML VIAL IV ONE (11:36)
[2016-04-06] MEDS: INSULIN LISPRO 100 UNIT/ML SC SCH ×2 (12:12→16:03)
[2016-04-06 15:07] VITALS: BP 137/85; PULSE 78; RESP 16; TEMP 98.5
--- NOTE | 2016-04-06 17:19 | CT ---
CT Scan of the Abdomen and Pelvis (With and Without Contrast) Clinical Indications: Evaluate pancreatic lesion. COMPARISON: March 26, 2016, noncontrasted evaluation. Technique: Dilute contrast was given orally prior to the scan. During the machine power injection o f 95 mL Isovue-300 intravenously, multidetector helical CT imaging was performed from the diaphragm t o the pubic symphysis. Coronal and parasagittal reformatted images are reviewed on the workstation. Dose reduction techniques were utilized. Scan is performed in arterial, venous, and delayed phases th rough the abdomen, and only in portal venous phase through the pelvis. A noncontrasted scan was first performed through the abdomen and pelvis prior to injecting contrast. Findings: There is no evidence for abnormal pancreatic calcification. No peripancreatic inflammation or edema. No enhancing pancreatic lesion. No cyst or pseudocyst or mass. The pancreatic duct is normal in size. Hepatic artery and SMA enhance normally with normal branches. Veins enhance normally. Incidentally noted are granulomas in the lung base and in the right liver. There is an ill-defined low-density lesion in the anterior aspect of the spleen, followed by addition al ring-enhancing lesions, best seen on arterial phase. They are not seen on noncontrasted phase, and are mostly resolved in the venous phase. I am not sure what these are. I suppose it could represent splenic hemangiomas. An ultrasound can be performed for further assessment if clinically warranted. Gallbladder is contracted. There is a either a linear focal calcification within it or a fold, along its lower aspect. This can also be further looked at by ultrasound. The liver, adrenal glands, and kidneys are otherwise normal. No ascites. There is an incidental epigastric lymph node, at the gastroesophageal junction, measuring 1.7 x 2.6 x 1.5 cm, nonspecific. It is an isolated lymph node. Impression: 1. No pancreatic lesion or cyst. 2. Nonspecific splenic lesions, one showing rim enhancement in arterial phase, the other one mostly l ow density without enhancing, nonspecific. Both could represent hemangiomas. Ultrasound can be perfor med for further assessment if clinically warranted. 3. Linear hyperdensity at the bottom part of the gallbladder that is also nonspecific, which could al so be looked at by ultrasound if needed. 4. Granulomas in the lung and liver. 5. Isolated lymph node at the GE junction, nonspecific.
[2016-04-06] MEDS ORDERED: FAMOTIDINE 20 MG TAB PO SCH (21:00)
[2016-04-06] MEDS ORDERED: MOMETASONE IH SCH (21:00)
[2016-04-06] MEDS ORDERED: FORMOTEROL IH SCH (21:00)
[2016-04-06] MEDS ORDERED: EZETIMIBE 10 MG TAB PO SCH (21:00)
--- NOTE | 2016-04-06 21:02 | GDS ---
[f rep st] DISCHARGE SUMMARY DIAGNOSES: 1. Diabetes mellitus. 2. Chronic kidney disease. 3. Hypoglycemia. 4. Hypertension. 5. Asthma. 6. Indeterminate splenic lesion, needs 3 month ultrasound followup. HOSPITAL COURSE: A 50-year-old man admitted through the emergency department after not having any in [facility]. It was noted that he had a new diagnosis of DKA after not having diabetes [address] s can was undertaken to evaluate the pancreas, which was normal. C-peptide has been ordered and is pen ding at the time of discharge. He also had an incidental splenic lesion noted on CT scan. Recommend ultrasound followup, if this is indeterminate he should get CT scan followup. This should be done in 3-6 months. He was just released from [facility], he is currently homeless. Case Management is working on getting him a bed at the [facility]term for tonight. He was given prescriptions for all of his needed medicines including insulin, as well as antihyperten sives. He has also been given prescriptions for inhalers. /[id number]/MODL
[2016-04-07] MEDS ORDERED: ALLOPURINOL 100 MG TAB PO SCH (09:00)
[2016-04-07] MEDS ORDERED: METOPROLOL SUCCINATE XR 25 MG TAB PO SCH (09:00)
[2016-04-07] MEDS ORDERED: SERTRALINE HCL 100 MG TAB PO SCH (09:00)
[2016-04-07] MEDS ORDERED: ASPIRIN EC 325 MG TAB PO SCH (09:00)
[2016-04-07] MEDS ORDERED: amLODIPine BESYLATE 5 MG TAB PO SCH (09:00)
== END 2016-04-06 19:13 | disposition home or self-care (01) ==
LOC: F1N 04-06 01:27
PROVIDERS: ADMIT Internal Medicine; ATTEND Student in an Organized Health Care Education/Training Program
DX: E13.10 Other specified diabetes mellitus with ketoacidosis without coma (principal); T38.3X6A Underdosing of insulin and oral hypoglycemic [antidiabetic] drugs, initial encounter; E13.22 Other specified diabetes mellitus with diabetic chronic kidney disease; I12.9 Hypertensive chronic kidney disease with stage 1 through stage 4 chronic kidney disease, or unspecified chronic kidney disease; N18.3 Chronic kidney disease, stage 3 (moderate); E78.5 Hyperlipidemia, unspecified; J45.909 Unspecified asthma, uncomplicated; G47.33 Obstructive sleep apnea (adult) (pediatric); E66.9 Obesity, unspecified; D73.89 Other diseases of spleen; Z65.2 Problems related to release from prison; Z59.0 Homelessness; Z91.128 Patient's intentional underdosing of medication regimen for other reason
CPT/HCPCS: 84681-90; J1815; Q9967